=== PATIENT | female | born 1995 | race Caucasian/White ===

== ENCOUNTER 2024-09-07 05:45 | Day surgery (SDC) | payer MEDICAID, SELFPAY ==
[2024-09-05 07:36] VITALS: BMI 39.2
[2024-09-05 08:19] LABS: Basophils # (Auto) 0.1 Thou/mm3 (0.0-0.2); Basophils % (Auto) 1 % (0-2.5); Eosinophils # (Auto) 0.1 Thou/mm3 (0.0-0.5); Eosinophils % (Auto) 1 % (0-10); Hematocrit 41.2 % (36.0-46.0); Hemoglobin 14.3 g/dL (12.0-16.0); Immature Granulocytes % (Auto) 1 % (0-0); Immature Granulocytes Auto 0.03 Thou/mm3 (0.00-0.00); Lymphocytes # (Auto) 2.6 Thou/mm3 (1.0-4.8); Lymphocytes % (Auto) 40 % (10-50); Mean Corpuscular HGB Conc 34.7 g/dl (31.0-37.0); Mean Corpuscular Hemoglobin 28.5 pg (25.0-35.0); Mean Corpuscular Volume 82 fL (80-100); Monocytes # (Auto) 0.4 Thou/mm3 (0.0-0.8); Monocytes % (Auto) 6 % (0-12); Neutrophils # (Auto) 3.3 Thou/mm3 (1.8-7.7); Neutrophils % (Auto) 51 % (37-80); Nucleated Red Blood Cell % 0 /100 WBC (0); Platelet Count 292 Thou/mm3 (140-440); RDW Standard Deviation 37.3 fL (36.4-46.3); Red Blood Count 5.02 Miln/mm3 (4.00-5.20); White Blood Count 6.5 Thou/mm3 (3.6-11.0)
[2024-09-05 08:32] LABS: Alanine Aminotransferase 19 U/L (10-49); Albumin, Serum 4.8 gm/dL (3.5-5.0); Albumin/Globulin Ratio 1.8 (1.2-2.2); Alkaline Phosphatase 137 U/L (46-116); Anion Gap 7 (7-16); Aspartate Amino Transferase 16 U/L (0-34); BUN/Creatinine Ratio 21 Ratio (12-20); Bilirubin,Total 0.4 mg/dL (0.3-1.2); Blood Urea Nitrogen 19 mg/dL (9-23); Calcium 9.7 mg/dL (8.3-10.6); Calcium (Corrected) 9.7 mg/dL (8.5-10.1); Carbon Dioxide 26.8 mMol/L (20.0-31.0); Chloride 106 mMol/L (98-107); Creatinine (Component) 0.9 mg/dL (0.6-1.3); Estimated Creatinine Clearance 108.1 mL/min (>60); Globulin 2.6 gm/dL (2.3-3.5); Glucose 89 mg/dL (74-106); Osmolality,Calculated 280 (275-295); Sodium 140 mMol/L (136-145); Total Protein 7.4 gm/dL (5.7-8.2); eGFR > 60 See Note
[2024-09-05 08:40] LABS: HCG,Qualitative Serum Negative
[2024-09-07] VITALS (9 sets, daily range): BP systolic 108–141; BP diastolic 65–91; PULSE 64–98; RESP 12–19; TEMP 36.2–36.5; O2SAT 95–99; BMI 38.7
[2024-09-07] MEDS: RINGERS LACTATED 1000 ML 1,000 ML 20 ML IV (06:36)
--- NOTE | 2024-09-07 08:37 | PD.GYNPROC ---
Operative Note - ANAESTHETIC TECHNICIAN Procedure Date of procedure: 09/07/24 Procedure Performed: Laparoscopic salpingectomy bilateral Indication: Desired surgical sterilization Anesthesia type: General Procedure description: Informed consent was obtained, and the patient was taken to the operating room. Identity was confirmed using double identifiers. She was placed on the operating table, and general anesthesia was administered with the airway secured. The patient was positioned in the dorsal lithotomy position using Aydin stirrups. The abdomen and perineum were prepped and draped in the usual sterile fashion. The bladder was emptied using a straight catheter, and a sponge stick was placed in the vagina for uterine manipulation. A 5 mm incision was made at the base of the umbilicus using a scalpel. Laparoscopic entry was achieved under direct visualization using an Optiview laparoscopic trocar. Once intra-abdominal placement was confirmed, pneumoperitoneum was insufflated to 15 mmHg. The camera was introduced into the abdomen, and a preliminary survey was performed. The uterus and both adnexa were noted to be within normal limits. A thorough survey of the upper abdomen revealed no gross abnormalities. Two accessory ports were placed 2 cm superior and medial to the anterior superior iliac spines (ASIS) bilaterally. Using the Enseal 37mm, a bilateral salpingectomy was performed in the usual fashion. The dissection sites were observed, and hemostasis was confirmed to be satisfactory. All instruments were withdrawn, and pneumoperitoneum was desufflated. The laparoscopic ports were removed, and the skin incisions were closed with 4-0 Monocryl in a subcuticular fashion. The skin was cleaned, and sterile dressings were applied. The patient was undraped, and general anesthesia was reversed. She was transferred to the recovery room in stable and awake condition. The patient tolerated the procedure well. Instrument, sponge, and lap counts were correct ?2. No complications were encountered. Estimated blood loss (ml): 10 Complications: none Surgical staff Operation Date: 09/07/24 07:30 Case Staff Anesthesiologist: Ramirez Watson RN First Assistant: Kayla Olmedo Diagnosis Discharge Diagnosis (1) Encounter for sterilization: Status: Acute Problem List Completed Was Problem List Reviewed/Reconciled?: Yes
--- NOTE | 2024-09-07 08:53 | SUR.PHASEI ---
0853: Pt. AAOx4, vitals stable, breathing unlabored, no complaint of pain or nausea, x3 dermabond sites to ABD CDI, no active bleed noted, report received from MD Watson and Leslie OQUENDO.
[2024-09-07] MEDS: ACETAMINOPHEN IVPB 1,000 MG/100 ML VIAL 250 MG IV (09:06)
[2024-09-07] MEDS: fentaNYL CIT INJ 50 mCg/ML AMP 2ML 25 MCG IVP ×3 (09:06→09:23)
[2024-09-07] MEDS: ONDANSETRON INJ 2 MG/ML INJ 2 ML 4 MG IVP (09:36)
[2024-09-07] MEDS: METOCLOPRAMIDE INJ 5 MG/ML VIAL 2 ML 10 MG IVP (09:54)
--- NOTE | 2024-09-07 10:10 | SUR.PHASEII ---
1010: Pt. AAOx4, vitals stable, breathing unlabored, no complaint of pain or nausea, x3 dermabond sites to ABD CDI, no active bleed noted, pt. tolerated sips of water well, pt. ambulated to wheelchair with steady gait and no assist, no complications. Gave discharge instructions to the pt. and her ride, both verbalized understanding and had no further questions. Pt. left wtih all personal belongings.
== END 2024-09-07 10:10 | disposition home or self-care (01) ==
PROVIDERS: PCP Family Medicine; Referring Provider Obstetrics & Gynecology; Visit Provider Obstetrics & Gynecology
PROC: (CPT 58720; principal; 2024-09-07 07:30)
DX: Z30.2 Encounter for sterilization (principal)
CPT/HCPCS: 58661; 36415; 80053; 84703; 85025; 86850; 86870; 86900; 86901; 87081; A4217; A4649; J0131; J0690; J1100; J1885; J2250; J2405; J2704; J2765; J3010; J3490; J7120

== ENCOUNTER 2024-09-11 19:06 | Emergency (ER) | payer MEDICAID, SELFPAY ==
[2024-09-11 19:07] VITALS: BMI 37.8
[2024-09-11 19:46] VITALS: BP 117/80; PULSE 80; RESP 18; TEMP 36.9; O2SAT 99
--- NOTE | 2024-09-11 20:00 | PD.EDWOUND ---
ED Wound/Laceration-RME/HPI General Chief Complaint: Dizziness Stated Complaint: DIZZINESS/ N/V X 1 Time Seen by Provider: 09/11/24 19:50 Source: patient Arrival date/time: 09/11/24 19:06 29-year-old female presents emergency department complaining of dizziness, nausea, and for wound check to umbilicus after recent surgical procedure laparoscopic salpingectomy on 09/07/2024. Patient [place] any fever, chills, vomiting, diarrhea, or any other associated symptom. Mode of arrival: ambulatory Limitations: no limitations Related Data Home Medications ?Medication ?Instructions ?Recorded ?Confirmed multivitamin 1 tab PO QAM 09/05/24 09/05/24 Previous Rx's ?Medication ?Instructions ?Recorded ibuprofen 600 mg tablet 600 mg PO Q6H PRN fever or pain 10 09/07/24 days #30 tabs Allergies Allergy/AdvReac Type Severity Reaction Status Date / Time No Known Allergies Allergy Verified 09/05/24 07:39 Review of Systems Review of Systems Systems Reviewed: All systems reviewed, normal except as documented Constitutional Constitutional: Reports system reviewed and no additional complaints, except as documented, Denies body ache(s), Denies chills and Denies fever(s) Eyes Eyes: Reports system reviewed and no additional complaints, except as documented and Denies change in vision ENT Ears, Nose, Mouth, and Throat: Reports system reviewed and no additional complaints, except as documented, Denies disequilibrium, Reports dizziness, Denies sore throat and Denies vertigo Cardiovascular Cardiovascular: Reports system reviewed and no additional complaints, except as documented, Denies chest pain and Denies dyspnea Respiratory Respiratory: Reports system reviewed and no additional complaints, except as documented, Denies chest congestion, Denies cough and Denies dyspnea Gastrointestinal Gastrointestinal: Reports system reviewed and no additional complaints, except as documented, Denies abdominal pain, Reports nausea and Denies vomiting Musculoskeletal Musculoskeletal: Reports system reviewed and no additional complaints, except as documented, Denies abnormal gait and Denies arthralgias Integumentary/Breasts Skin/Breast: Reports system reviewed and no additional complaints, except as documented, Denies erythema, Denies rash and Reports other (Surgical incision) Neurologic Neurologic: Reports system reviewed and no additional complaints, except as documented, Denies abnormal gait, Denies disequilibrium, Reports dizziness and Denies vertigo Past Medical History Past Medical History NEUROLOGIC: Negative Neurological Disorders or Seizures CARDIAC: Negative Cardiac Disorders, Congestive Heart Failure, Edema, Cellulitis or Varicose Veins RESPIRATORY: Positive Asthma; Negative Chronic Obstructive Pulmonary Disease (COPD), Tuberculosis, Pulmonary Embolism or Sleep Apnea GASTROINTESTINAL: Positive Gastrointestinal Disorders, Gall Bladder Disease, Hemorrhoids and Obesity; Negative Hepatitis or Colorectal Cancer GENITOURINARY: Negative Genitourinary Disorders, Renal Disease or Prostate Cancer REPRODUCTIVE: Positive Previous Pregnancies; Negative Breast Cancer or Testicular Cancer MUSCULOSKELETAL: Negative Musculoskeletal Disorders or Bone Cancer ENDOCRINE: Negative Endocrine Disorders, Diabetes Mellitus Type 1 or Diabetes Mellitus Type 2 HEMATOLOGIC: Positive Blood Disorders and Anemia; Negative Sickle Cell Disease PSYCHO/SOCIAL: Positive Depression (no meds) and Anxiety OTHER HISTORY: Positive Hospitalization (surgey, MRSA infection left breast) and MRSA (left breast incision, had breast implants); Negative Autoimmune Disease, Shingles, Blood Transfusions, Blood Transfusion Reaction, Anesthesia Reactions, Organ Transplant, Chemotherapy, Radiation Therapy, Hyperbaric Therapy, Chicken Pox, Measles, Mumps, Cancer, Breast Cancer, Cervical Cancer, Colorectal Cancer, Lung Cancer, Ovarian Cancer, Prostate Cancer or Testicular Cancer Family History FAMILY HISTORY: Positive Family Respiratory Disorders and Family Surgery; Negative Family Psychiatric Problems, Family Cardiac Disorders, Family Gastrointestinal Problems, Family Cancer or Family Anesthesia Reaction Surgical History SURGICAL: Positive Abdominal Surgery and Section (2); Negative Pacemaker, Nephrectomy, Joint Replacement, Neurologic Surgery, Brain Shunt or Organ Transplant Social History SMOKING STATUS: Never smoker ED Exam General Limitations: Present no limitations General appearance: Present alert and in no apparent distress Head Head exam: Present atraumatic Eye Eye exam: Present normal appearance, PERRL and EOMI ENT ENT exam: Present normal exam, normal oropharynx and mucous membranes moist Neck Neck exam: Present normal inspection, full ROM and trachea midline Chest Chest inspection: Present normal inspection and symmetric chest wall rise Respiratory Respiratory exam: Present normal lung sounds bilaterally Cardiovascular Cardiovascular exam: Present regular rate, normal rhythm and normal heart sounds Abdominal Exam Abdominal exam: Present soft and normal bowel sounds Extremities Exam Extremities exam: Present normal inspection and full ROM Back Exam Back exam: Present normal inspection and full ROM Neurological Exam Neurological exam: Present alert, oriented X3 and CN II-XII intact Psychiatric Psychiatric exam: Present normal affect and normal mood Skin Skin exam: Present warm, dry, intact and normal color Expanded Skin Exam Body image: 1. Laparoscopic incision site with Dermabond no obvious signs of infection. Course Quality Measures none Orders Category Date Time Status Bedside Influenza A&B Antigen Test NOW Care 09/11/24 20:01 Completed CBC Stat Lab 09/11/24 20:07 Completed CMP [Comprehensive Metabolic Panel] Stat Lab 09/11/24 20:07 Completed Drug Screen,Urine Stat Lab 09/11/24 21:14 Completed Lactate (Lactic Acid) Stat Lab 09/11/24 21:06 Completed Lipase Stat Lab 09/11/24 20:07 Completed Procalcitonin Stat Lab 09/11/24 21:06 Completed Urinalysis, C/S if Indicated Stat Lab 09/11/24 21:14 Completed Vital Signs Vital signs: Vital Signs Temperature 98.5 F 09/11/24 19:46 Pulse Rate 80 09/11/24 19:46 Respiratory Rate 18 09/11/24 19:46 Blood Pressure 117/80 09/11/24 19:46 Pulse Oximetry (%) 99 09/11/24 19:46 Oxygen Delivery Method Room Air 09/11/24 19:46 99% room air within normal limits Wound / Laceration MDM Narrative MDM Narrative:: 29-year-old female presents emergency department complaining of dizziness, nausea, and for wound check to umbilicus after recent surgical procedure laparoscopic salpingectomy on 09/07/2024. Patient [place] any fever, chills, vomiting, diarrhea, or any other associated symptom. Patient vital signs within normal limits with no SIRS criteria. CBC mild leukocytosis with normal lactic and normal procalcitonin. CMP was unremarkable for any gross electrolyte abnormalities or elevated LFTs. The patient appears nontoxic and is hemodynamically stable. Patient discharged ducted to have follow-up with Dr. Castaneda upon discharge and return to emergency department for any worsening symptoms or as needed. Patient data External records reviewed:: [facility] previous records Clinical information provided by:: patient Social determinants that could affect healthcare access:: none Patient has the following chronic illnesses:: See chart How is presenting disease/condition affected by chronic disease/condition?: uneffected by Evaluation data The following diagnostics were reviewed and interpreted by me:: lab results Lab and/or radiology exams considered but not ordered:: Ordered Interpretation Summary: Interpreted by me Medications / Prescriptions Medications or Prescriptions considered but not ordered:: N/A Medication administrations:: N/A Consultations Consultation(s) initiated? (list below): No Diagnosis Wound Differential Diagnosis: abscess Most likely diagnosis given after review of the tests above:: Nausea and vomiting Admission Indicated Admission indicated?: not indicated Admission Request Was there a request for admission?: No Disposition Plan Disposition Plan: Discharge Discharge Attestation Discharge Attestation: The patient and all family members were given an opportunity to ask questions and understood the discharge instructions. Discharge instructions specifically effects, indications for sooner follow up or return to the emergency department, and the expected course of current diagnosis. Patient condition: Stable Discharge Plan Plan Patient Disposition: HOME (Self Care) Disposition Comment: Stable Prescriptions/Referrals Prescriptions/Med Rec: No Action multivitamin Tablet 1 tab PO QAM ibuprofen 600 mg tablet 600 mg PO Q6H PRN (Reason: fever or pain) 10 Days Qty: 30 0RF Referrals: Temporary Provider,ED [Physician] - In 1 week Problem List Clinical Impression: Nausea & vomiting Patient/Caregiver Discharge Instructions Discharge Activity: activity as tolerated Education Materials: ED Diet for Vomiting or ..., ED Vomiting (Adult) Additional Instructions: Fluids as tolerated. Follow-up with primary care provider and [employer] Dr. Castaneda upon discharge. Monitor laparoscopic site for any signs of infection. Return to emergency department for any worsening symptoms or as needed. Print Language: Barbadian Stand Alone Forms: Sweetie Award Info., Patient Portal Info Letter PA/JENIFFER Supervising Physician PA/JENIFFER Supervising Physician: Dr. Bowers
[2024-09-11 20:32] LABS: Basophils # (Auto) 0.1 Thou/mm3 (0.0-0.2); Basophils % (Auto) 1 % (0-2.5); Eosinophils # (Auto) 0.2 Thou/mm3 (0.0-0.5); Eosinophils % (Auto) 1 % (0-10); Hematocrit 41.4 % (36.0-46.0); Hemoglobin 14.7 g/dL (12.0-16.0); Immature Granulocytes % (Auto) 0 % (0-0); Immature Granulocytes Auto 0.04 Thou/mm3 (0.00-0.00); Lymphocytes # (Auto) 3.7 Thou/mm3 (1.0-4.8); Lymphocytes % (Auto) 31 % (10-50); Mean Corpuscular HGB Conc 35.5 g/dl (31.0-37.0); Mean Corpuscular Hemoglobin 28.9 pg (25.0-35.0); Mean Corpuscular Volume 82 fL (80-100); Monocytes # (Auto) 0.8 Thou/mm3 (0.0-0.8); Monocytes % (Auto) 7 % (0-12); Neutrophils # (Auto) 7.3 Thou/mm3 (1.8-7.7); Neutrophils % (Auto) 60 % (37-80); Nucleated Red Blood Cell % 0 /100 WBC (0); Platelet Count 340 Thou/mm3 (140-440); RDW Standard Deviation 35.7 fL (36.4-46.3); Red Blood Count 5.08 Miln/mm3 (4.00-5.20); White Blood Count 12.1 Thou/mm3 (3.6-11.0)
[2024-09-11 20:34] LABS: Anion Gap 8 (7-16); BUN/Creatinine Ratio 24 Ratio (12-20); Blood Urea Nitrogen 19 mg/dL (9-23); Carbon Dioxide 28.1 mMol/L (20.0-31.0); Chloride 104 mMol/L (98-107); Creatinine (Component) 0.8 mg/dL (0.6-1.3); Estimated Creatinine Clearance 119.1 mL/min (>60); Potassium 3.9 mMol/L (3.4-5.1); Sodium 140 mMol/L (136-145); eGFR > 60 See Note
[2024-09-11 20:35] LABS: Alanine Aminotransferase 24 U/L (10-49); Albumin, Serum 4.9 gm/dL (3.5-5.0); Albumin/Globulin Ratio 1.8 (1.2-2.2); Alkaline Phosphatase 140 U/L (46-116); Aspartate Amino Transferase 16 U/L (0-34); Bilirubin,Total 0.3 mg/dL (0.3-1.2); Calcium 10.1 mg/dL (8.3-10.6); Calcium (Corrected) 10.1 mg/dL (8.5-10.1); Globulin 2.8 gm/dL (2.3-3.5); Glucose 88 mg/dL (74-106); Lipase 31 U/L (12-53); Osmolality,Calculated 280 (275-295); Total Protein 7.7 gm/dL (5.7-8.2)
[2024-09-11 21:28] LABS: Lactate (Lactic Acid) 1.8 mMol/L (0.4-2.0)
[2024-09-11 21:32] LABS: Collection Type, Urine Clean Catch
[2024-09-11 21:41] LABS: Bilirubin,Urine Negative (Negative); Blood,Urine Negative (Negative); Clarity,Urine Clear (Clear/Hazy); Color,Urine Yellow (Lt Yel-Yel); Culture Indicated,Urine Not Indicated; Glucose, Urine Negative (Negative); Ketones,Urine Negative (Negative); Leukocyte Esterase,Urine Negative (Negative); Nitrite,Urine Negative (Negative); PH,Urine 5.5 (5.0-7.0); Protein,Urine Trace (Neg - Trace); RBC,Urine 3 /hpf (0-3); Specific Gravity,Urine 1.029 (1.001-1.035); Squamous Epithelial Cell,Urine 13 /hpf (0-5); Urobilinogen,Urine Negative mg/dL (0.0-1.0); WBC,Urine 2 /hpf (0-5)
[2024-09-11 22:02] LABS: Procalcitonin < 0.04 ng/ml (0.0-0.49)
[2024-09-11 22:28] LABS: Amphetamine/Methamp Scrn,U Negative (Negative); Barbiturate Screen,Urine Negative (Negative); Benzodiazepines Screen,Urine Negative (Negative); Benzoylecgonine Screen, Ur Negative (Negative); Fentanyl Screen,Urine Negative (Negative); Opiate Screen,Urine Negative (Negative); THC Screen,Urine Negative (Negative)
== END 2024-09-11 23:11 | disposition home or self-care (01) ==
PROVIDERS: Emergency Provider Emergency Medicine; PCP Family Medicine
DX: R11.2 Nausea with vomiting, unspecified (principal); R42 Dizziness and giddiness
CPT/HCPCS: 36415; 80053; 80307; 81001; 83605; 83690; 84145; 85025; 87400; 99283

== ENCOUNTER 2025-03-14 12:36 | Emergency (ER) | payer MEDICAID, SELFPAY ==
[2025-03-14 13:00] VITALS: BP 141/87; PULSE 87; RESP 18; TEMP 36.6; O2SAT 98; BMI 39.4
--- NOTE | 2025-03-14 13:00 | XR_ITS ---
Examination: CT brain head without contrast. 2-D sagittal coronal reconstructions Date and time of exam:March 14, 2025 1334 hours INDICATIONS: Onset right-sided facial numbness today CTDI: vol (mGy):53.5 DLP: (mGycm):1000 and Technique: Multiple CT axial sections of the brain have been obtained, 5 mm slice thickness. Contrast has not been administered. 2-D sagittal, coronal reconstructions have been obtained Low dose protocols were performed. One or more of the following dose reduction techniques were used; automated exposure control, adjustment of the mA and/or KV according to patient size, use of iterative reconstruction technique. Findings: No significant ventricular enlargement. Intra-axial or extra-axial hemorrhage density is not seen. No mass effect or midline shift Basal cisterns are not remarkable. Fourth ventricle is midline. Cranial vault intact. Impression: Negative for acute hemorrhage, mass effect or midline shift As clinically warranted, brain MRI follow-up would best assess for demyelinating disease, acute ischemic change
--- NOTE | 2025-03-14 15:13 | EDNOTE_ITS ---
ED Headache RME/HPI General Chief Complaint: Eye Problems Stated Complaint: Right side ear pain at night, right side face Time Seen by Provider: 03/14/25 12:52 Arrival date/time: 03/14/25 12:36 30[facility] of right-sided facial palsy patient reports symptoms ongoing x 1 day Limitations: no limitations Related Data Home Medications ?Medication ?Instructions ?Recorded ?Confirmed multivitamin 1 tab PO QAM 09/05/24 Previous Rx's ?Medication ?Instructions ?Recorded prednisone 10 mg tablet 30 mg (3 x 10 mg) PO BID 3 d ays 03/14/25 #18 tabs valacyclovir 1 gram tablet 1,000 mg PO TID 7 days #21 tabs 03/14/25 Allergies Allergy/AdvReac Type Severity Reaction Status Date / Time No Known Allergies Allergy Verified 03/14/25 12:42 Review of Systems Review of Systems Systems Reviewed: All systems reviewed, normal except as documented Constitutional Constitutional: Reports system reviewed and no additional complaints, except as documented, Denies fever(s) and Denies headache(s) Eyes Eyes: Reports system reviewed and no additional complaints, except as documented and Denies blurry vision ENT Ears, Nose, Mouth, and Throat: Reports system reviewed and no additional complaints, except as documented, Denies headache(s), Denies nasal congestion and Denies nasal discharge Cardiovascular Cardiovascular: Reports system reviewed and no additional complaints, except as documented, Denies chest pain and Denies dyspnea Respiratory Respiratory: Reports system reviewed and no additional complaints, except as documented, Denies chest congestion, Denies cough and Denies dyspnea Gastrointestinal Gastrointestinal: Reports system reviewed and no additional complaints, except as documented and Denies abdominal pain Integumentary/Breasts Skin/Breast: Reports system reviewed and no additional complaints, except as documented and Denies rash Neurologic Neurologic: Reports system reviewed and no additional complaints, except as documented, Reports as per HPI, Denies headache(s) and Reports other (Right- sided facial palsy) Past Medical History Past Medical History NEUROLOGIC: Negative Neurological Disorders or Seizures CARDIAC: Negative Cardiac Disorders, Congestive Heart Failure, Edema, Cellulitis or Varicose Veins RESPIRATORY: Positive Asthma; Negative Chronic Obstructive Pulmonary Disease (COPD), Tuberculosis, Pulmonary Embolism or Sleep Apnea GASTROINTESTINAL: Positive Gastrointestinal Disorders, Gall Bladder Disease, Hemorrhoids and Obesity; Negative Hepatitis or Colorectal Cancer GENITOURINARY: Negative Genitourinary Disorders, Renal Disease or Prostate Cancer REPRODUCTIVE: Positive Previous Pregnancies; Negative Breast Cancer or Testicular Cancer MUSCULOSKELETAL: Negative Musculoskeletal Disorders or Bone Cancer ENDOCRINE: Negative Endocrine Disorders, Diabetes Mellitus Type 1 or Diabetes Mellitus Type 2 HEMATOLOGIC: Positive Blood Disorders and Anemia; Negative Sickle Cell Disease PSYCHO/SOCIAL: Positive Depression (no meds) and Anxiety OTHER HISTORY: Positive Hospitalization (surgey, MRSA infection left breast) and MRSA (left breast incision, had breast implants); Negative Autoimmune Disease, Shingles, Blood Transfusions, Blood Transfusion Reaction, Anesthesia Reactions, Organ Transplant, Chemotherapy, Radiation Therapy, Hyperbaric Therapy, Chicken Pox, Measles, Mumps, Cancer, Breast Cancer, Cervical Cancer, Colorectal Cancer, Lung Cancer, Ovarian Cancer, Prostate Cancer or Testicular Cancer Family History FAMILY HISTORY: Positive Family Respiratory Disorders and Family Surgery; Negative Family Psychiatric Problems, Family Cardiac Disorders, Family Gastrointestinal Problems, Family Cancer or Family Anesthesia Reaction Surgical History SURGICAL: Positive Abdominal Surgery and Section (2); Negative Pacemaker, Nephrectomy, Joint Replacement, Neurologic Surgery, Brain Shunt or Organ Transplant Social History SMOKING STATUS: Never smoker ED Exam General Limitations: Present no limitations General appearance: Present alert and in no apparent distress Head Head exam: Present atraumatic Eye Eye exam: Present normal appearance, PERRL and EOMI ENT ENT exam: Present normal exam, normal oropharynx and mucous membranes moist Neck Neck exam: Present normal inspection, full ROM and trachea midline Chest Chest inspection: Present normal inspection and symmetric chest wall rise Respiratory Respiratory exam: Present normal lung sounds bilaterally Cardiovascular Cardiovascular exam: Present regular rate, normal rhythm and normal heart sounds Abdominal Exam Abdominal exam: Present soft and normal bowel sounds Extremities Exam Extremities exam: Present normal inspection and full ROM Back Exam Back exam: Present normal inspection and full ROM Neurological Exam Neurological exam: Present alert, normal gait and other (Right-sided facial palsy) Psychiatric Psychiatric exam: Present normal affect and normal mood Skin Skin exam: Present warm, dry, intact and normal color Course Quality Measures none Orders Category Date Time Status CT head/brain wo con Stat Exams 03/14/25 13:00 Completed Dexamethasone Inj [Decadron Inj] Med 03/14/25 15:13 Discontinued 10 mg PO X1 ONE Vital Signs Vital signs: Vital Signs Temperature 97.9 F 03/14/25 13:00 Pulse Rate 87 03/14/25 13:00 Respiratory Rate 18 03/14/25 13:00 Blood Pressure 141/87 H 03/14/25 13:00 Pulse Oximetry (%) 98 03/14/25 13:00 Oxygen Delivery Method Room Air 03/14/25 13:00 O2 saturation 98% room air within normal limits Headache MDM Narrative MDM Narrative:: 30-year-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 CT scan obtained no acute emergent findings noted Patient given first dose of dexamethasone here Patient discharged home valacyclovir and prednisone On exam patient has no weakness of her extremities patient smiling and happy Patient discharged home in no distress to follow-up with primary care doctor in the next 24 to 48 hours and for any worsening symptoms to return to the ER immediately Patient data External records reviewed:: [facility] previous records Clinical information provided by:: patient Social determinants that could affect healthcare access:: none Patient has the following chronic illnesses:: None How is presenting disease/condition affected by chronic disease/condition?: no chronic disease Evaluation data The following diagnostics were reviewed and interpreted by me:: radiology exam(s) Lab and/or radiology exams considered but not ordered:: Radiology obtain Interpretation Summary: Reviewed by me Medications / Prescriptions Medications or Prescriptions considered but not ordered:: Given Medication administrations:: Medication Administration History Discontinued Medications Dexamethasone Sodium Phosphate (Dexamethasone Sod Phos Inj 10 Mg/Ml Vial) 10 mg PO X1 ONE Stop: 03/14/25 15:14 Given Consultations Consultation(s) initiated? (list below): No Diagnosis Differential diagnosis headache: migraine, tension headache, subarachnoid hemorrhage and headache Most likely diagnosis given after review of the tests above:: Headache Admission Indicated Admission indicated?: not indicated Admission Request Was there a request for admission?: No Disposition Plan Disposition Plan: Discharge Discharge Attestation Discharge Attestation: The patient and all family members were given an opportunity to ask questions and understood the discharge instructions. Discharge instructions specifically effects, indications for sooner follow up or return to the emergency department, and the expected course of current diagnosis. Patient condition: Stable Discharge Plan Plan Patient Disposition: HOME (Self Care) Discharge Disposition comment: Stable Prescriptions/Referrals Prescriptions/Med Rec: New prednisone 10 mg tablet 30 mg PO BID 3 Days Qty: 18 0RF valacyclovir 1 gram tablet 1,000 mg PO TID 7 Days Qty: 21 0RF No Action multivitamin Tablet 1 tab PO QAM Referrals: Brigido Jules MD [Primary Care Provider] - 03/15/25 Problem List Clinical Impression: Barriga's palsy Patient/Caregiver Discharge Instructions Education Materials: ED Barriga's Palsy Additional Instructions: Please follow up with your primary care doctor in the next 24-48hrs for any worsening symptoms return here immediately Print Language: Lebanese Stand Alone Forms: Sweetie Award Info., Patient Portal Info Letter PA/PEDIATRIC ORTHODONTIST Supervising Physician PA/PEDIATRIC ORTHODONTIST Supervising Physician: Dr. wright
[2025-03-14] MEDS: DEXAMETHASONE SOD PHOS INJ 10 MG/ML VIAL PO (15:33)
== END 2025-03-14 15:37 | disposition home or self-care (01) ==
PROVIDERS: Emergency Provider Emergency Medicine; PCP Family Medicine
DX: G51.0 Bell's palsy (principal)
CPT/HCPCS: 70450; 99284; J1100